=== PATIENT | female | born 1990 | race Caucasian/White ===

== ENCOUNTER 2019-07-04 08:43 | Emergency (ER) | payer MEDICAID ==
[2019-07-04] MEDS ORDERED: KETOROLAC TROMETHAMINE 60 MG/2 ML SDV IM ONE (10:13)
[2019-07-04] MEDS ORDERED: METHYLPREDNISOLONE ACETATE INJ 80 MG/1 ML VIAL IM ONE (10:13)
[2019-07-04] MEDS ORDERED: METHOCARBAMOL 750 MG TABLET PO ONE (10:14)
--- NOTE | 2019-07-04 10:14 | ER Document Report ---
ED General - General Chief Complaint: Back Pain Stated Complaint: BACK PAIN Time Seen by Provider: 07/04/19 09:57 Mode of Arrival: Ambulatory Information source: Patient TRAVEL OUTSIDE OF THE [place] IN LAST 30 DAYS: No - HPI Onset: Other - over the last 3-4 days Onset/Duration: Sudden Quality of pain: Burning, Sharp Severity: Severe Pain Level: 5 Associated symptoms: Other - pain radiates down both legs Exacerbated by: Movement, Walking Relieved by: Remaining still Recently seen / treated by doctor: Yes - patient has chronic back pains but todays pain seems worse to her Notes: 29 year old female with a history of Chronic Back Pain s/p 3 surgeries (most recently was Lumbar fusion in 2017 done in [place], [place]), Bipolar and Sc hizophrenia here for 3-4 days of low back pain. The patient denies trauma to her back, recent heavy lifting, or an inciting event. The patient says she has pain in her neck through her low back and the pain seems to radiate down both legs. The patient denies numbness, tingling, leg weakness, incontinence, urinary retention. The patient says she has no follow up appointment with the Spine Surgeon who performed her surgery but she has called to try and make an appointment. The patient says she usually uses Tylenol at home but it isnt working. - Related Data Allergies/Adverse Reactions: haloperidol [From Haldol] Allergy (Intermediate, Verified 07/04/19 08:48) haloperidol lactate [From Haldol] Allergy (Intermediate, Verified 07/04/19 08:48) latex [Latex] Allergy (Verified 07/04/19 08:48) morphine Adverse Reaction (Mild, Verified 07/04/19 08:48) Pruritis Home Medications: Seroquel. Clonidine. Lexapro. Topamax Past Medical History - General Information source: Patient - Social History Smoking Status: Current Every Day Smoker Chew tobacco use (# tins/day): No Frequency of alcohol use: None Drug Abuse: None Family History: Reviewed & Not Pertinent Patient has suicidal ideation: No Patient has homicidal ideation: No Neurological Medical History: Reports: Hx Migraine Musculoskeletal Medical History: Reports Other - Chronic Back Pain Psychiatric Medical History: Reports: Hx Anxiety - panic attacks, Hx Bipolar Disorder, Hx Depression, Hx Schizophrenia Past Surgical History: Reports: Hx Orthopedic Surgery - 04/2013 & 09/2013, Hx Tubal Ligation - Immunizations Immunizations up to date: No Hx Diphtheria, Pertussis, Tetanus Vaccination: No Review of Systems - Review of Systems Constitutional: No symptoms reported EENT: No symptoms reported Cardiovascular: No symptoms reported Respiratory: No symptoms reported Gastrointestinal: No symptoms reported Genitourinary: Frequency Female Genitourinary: No symptoms reported Musculoskeletal: Back pain - from neck to low back and radiates down both legs Skin: No symptoms reported Hematologic/Lymphatic: No symptoms reported Neurological/Psychological: No symptoms reported Physical Exam - Vital signs Vitals: Temp Pulse Resp BP Pulse Ox 97.9 F 78 20 129/62 H 98 07/04/19 08:47 07/04/19 08:47 07/04/19 08:47 07/04/19 08:47 07/04/19 08:47 - Notes Notes: GENERAL: Well-appearing, well-nourished and in no acute distress. HEAD: Atraumatic, normocephalic. EYES: Pupils equal round and reactive to light, extraocular movements intact, sclera anicteric, conjunctiva are normal. ENT: TMs normal, nares patent, oropharynx clear without exudates. Moist mucous membranes. NECK: Normal range of motion, supple without lymphadenopathy or JVD. LUNGS: Breath sounds clear to auscultation bilaterally and equal. No wheezes rales or rhonchi. HEART: Regular rate and rhythm without murmurs, rubs or gallops. ABDOMEN: Soft, nontender, normoactive bowel sounds. No guarding, no rebound. No masses appreciated. EXTREMITIES: Normal range of motion, no pitting or edema. No clubbing or cyanosis. BACK: mild tenderness to palpation in Lumbar Spine area with no step offs. Pain in both legs and Lumbar Region with straight leg raise of both legs. NEUROLOGICAL: Cranial nerves II through XII grossly intact. Normal speech, normal gait. PSYCH: Normal mood, normal affect. SKIN: Warm, Dry, normal turgor, no rashes or lesions noted. Course - Re-evaluation Re-evalutation: 07/04/19 10:41 The patient is here for acute on chronic back pain. She has had 3 surgeries on her back with the most recent being in 2017 (lumbar fusion) in [place], [place]. Patient had no new injuries to her back and her Lumbar Xray shows no acute process. Patient told to follow up with her Spine Surgeon. Patient treated with Depomedrol IM, Toradol IM, and Robaxin PO. Will DC on Naproxen and Robaxin. 07/04/19 10:49 Patient is having urinary frequency and her UA looks possibly infectious. Will treat with Cipro 250mg BID for 3 days. - Vital Signs Vital signs: Temp Pulse Resp BP Pulse Ox 97.9 F 78 20 129/62 H 98 07/04/19 08:47 07/04/19 08:47 07/04/19 08:47 07/04/19 08:47 07/04/19 08:47 - Laboratory Laboratory results interpreted by me: 07/04/19 09:42 Urine Protein 30 H Ur Leukocyte Esterase LARGE H Discharge - Discharge Clinical Impression: Back pain Qualifiers: Back pain location: low back pain Chronicity: acute Back pain laterality: unspecified Sciatica presence: with sciatica Sciatica laterality: bilateral sciatica Qualified Code(s): M54.42 - Lumbago with sciatica, left side UTI (urinary tract infection) Qualifiers: Urinary tract infection type: acute cystitis Hematuria presence: without hematuria Qualified Code(s): N30.00 - Acute cystitis without hematuria Condition: Stable Disposition: HOME, SELF-CARE Additional Instructions: Use Naproxen for back pain along with over the counter Tylenol. Use Robaxin for muscle spasms. Take Ciprofloxacin as prescribed for a UTI. Follow up with your Spine Surgeon as soon as possible. Prescriptions: Ciprofloxacin HCl [Cipro 500 mg Tablet] 250 mg PO BID 3 Days #6 tablet Naproxen 500 mg PO BID PRN #14 tablet PRN Reason: Methocarbamol [Robaxin 750 mg Tablet] 750 mg PO Q8H PRN #15 tablet PRN Reason:
[2019-07-04 10:31] LABS: APPEARANCE,URINE SLIGHTLY-CLOUDY; BILIRUBIN,URINE NEGATIVE (NEGATIVE); COLOR,URINE YELLOW; GLUCOSE, URINE NEGATIVE (NEGATIVE); KETONES,URINE NEGATIVE (NEGATIVE); LEUKOCYTE ESTERASE,URINE LARGE (NEGATIVE); NITRITE,URINE NEGATIVE (NEGATIVE); PROTEIN,URINE 30 mg/dL (NEGATIVE); URINE SPECIFIC GRAVITY 1.025; UROBILINOGEN,URINE NEGATIVE mg/dL (<2.0)
--- NOTE | 2019-07-04 10:57 | RADIOLOGY REPORT (SQ) ---
EXAM DESCRIPTION: L SPINE 2 VIEWS COMPLETED DATE/TIME: 07/04/2019 10:47 am REASON FOR STUDY: low back pain COMPARISON: None. FINDINGS: Two views lumbar spine: Intact instrumentation at the lumbosacral junction. Normal align ment. No fracture or bone lesion detected. TECHNICAL DOCUMENTATION: JOB ID: [id number] Reading location - IP/workstation name: [email or web address]
[2019-07-04 11:29] VITALS: BP 115/56
== END 2019-07-04 11:32 | disposition home or self-care (01) ==
LOC: ER 08:43
DX: M54.42 Lumbago with sciatica, left side (principal); N30.00 Acute cystitis without hematuria; M54.9 Dorsalgia, unspecified; M79.604 Pain in right leg; M79.605 Pain in left leg; G89.29 Other chronic pain; Z98.890 Other specified postprocedural states; F17.200 Nicotine dependence, unspecified, uncomplicated
CPT/HCPCS: 99283; 96372; 81001; 72100; J1885; J3490; J1040

== ENCOUNTER 2019-08-03 10:57 | Emergency (ER) | payer MEDICAID ==
[2019-08-03] MEDS ORDERED: TETRACAINE HCL 0.5% OPH SOLN 4 ML OD ONE (12:08)
--- NOTE | 2019-08-03 12:09 | ER Document Report ---
ED Medical Screen (RME) - General Chief Complaint: Eye Pain Stated Complaint: EYE IRRITATION Time Seen by Provider: 08/03/19 12:03 Mode of Arrival: Ambulatory Information source: Patient Notes: 29-year-old female patient presents emergency department chief complaint of right eye pain. Patient reports over the last 3 days she has had pain and swelling. Patient reports pain not only on the upper eyelid where there appears to be a stye but also pain in her eyeball itself. Patient also reports intermittent blurred vision. Patient denies use of any contact lenses. Denies any trauma to the eye. Patient reports she cannot see out of that eye properly. Orders placed, patient will be seen in the back. I have greeted and performed a rapid initial assessment of this patient. A comprehensive ED assessment and evaluation of the patient, analysis of test results and completion of the medical decision making process will be conducted by additional ED providers. I have specifically instructed the patient or family members with the patient to immediately return to any nursing staff should anything change in the patient's condition or with their chief complaint. TRAVEL OUTSIDE OF THE [place] IN LAST 30 DAYS: No - Related Data Allergies/Adverse Reactions: haloperidol [From Haldol] Allergy (Intermediate, Verified 08/03/19 11:45) haloperidol lactate [From Haldol] Allergy (Intermediate, Verified 08/03/19 11:45) latex [Latex] Allergy (Verified 08/03/19 11:45) Home Medications: melatonin Past Medical History - Social History Frequency of alcohol use: None Drug Abuse: None Neurological Medical History: Reports: Hx Migraine Psychiatric Medical History: Reports: Hx Anxiety - panic attacks, Hx Bipolar Disorder, Hx Depression, Hx Schizophrenia Past Surgical History: Reports: Hx Orthopedic Surgery - 04/2013 & 09/2013, Hx Tubal Ligation - Immunizations Immunizations up to date: No Hx Diphtheria, Pertussis, Tetanus Vaccination: No Physical Exam - Vital signs Vitals: Temp Pulse Resp BP Pulse Ox 98.5 F 92 16 137/79 H 100 08/03/19 11:16 08/03/19 11:16 08/03/19 11:16 08/03/19 11:16 08/03/19 11:16 Course - Vital Signs Vital signs: Temp Pulse Resp BP Pulse Ox 98.5 F 92 16 137/79 H 100 08/03/19 11:16 08/03/19 11:16 08/03/19 11:16 08/03/19 11:16 08/03/19 11:16
--- NOTE | 2019-08-03 13:25 | ER Document Report ---
ED General - General Chief Complaint: Eye Pain Stated Complaint: EYE IRRITATION Time Seen by Provider: 08/03/19 12:03 Primary Care Provider: [facility] [Provider Group] - Follow up in 3-5 days ANTONIA MENSAH DO [ACTIVE STAFF] - Follow up in 3-5 days SYED WARD MD [COMMUNITY BASED STAFF] - Follow up in 3-5 days Mode of Arrival: Ambulatory Notes: 29-year-old female presents with right upper eyelid pain and swelling for the past 3 days. Patient denies any fever. Patient is supposed to wear glasses and denies wearing any contacts. Patient does not currently have her glasses with her. Patient denies any redness to her eye, injury to her eye, or pain to her actual eye. Patient states her eye ball does feel itchy. Patient also denies any fever. TRAVEL OUTSIDE OF THE [place] IN LAST 30 DAYS: No - Related Data Allergies/Adverse Reactions: haloperidol [From Haldol] Allergy (Intermediate, Verified 08/03/19 11:45) haloperidol lactate [From Haldol] Allergy (Intermediate, Verified 08/03/19 11:45) latex [Latex] Allergy (Verified 08/03/19 11:45) Home Medications: melatonin Past Medical History - General Information source: Patient - Social History Smoking Status: Current Every Day Smoker Frequency of alcohol use: None Drug Abuse: None Family History: Reviewed & Not Pertinent Patient has suicidal ideation: No Patient has homicidal ideation: No Neurological Medical History: Reports: Hx Migraine Psychiatric Medical History: Reports: Hx Anxiety - panic attacks, Hx Bipolar Disorder, Hx Depression, Hx Schizophrenia Past Surgical History: Reports: Hx Orthopedic Surgery - 04/2013 & 09/2013, Hx Tubal Ligation - Immunizations Immunizations up to date: No Hx Diphtheria, Pertussis, Tetanus Vaccination: No Review of Systems - Review of Systems Notes: Constitutional: Negative for fever. HENT: Negative for sore throat. Eyes: Positive for right upper eyelid swelling/pain. Cardiovascular: Negative for chest pain. Respiratory: Negative for shortness of breath. Gastrointestinal: Negative for abdominal pain, vomiting or diarrhea. Genitourinary: Negative for dysuria. Musculoskeletal: Negative for back pain. Skin: Negative for rash. Neurological: Negative for headaches, weakness or numbness. 10 point ROS negative except as marked above and in HPI. Physical Exam - Vital signs Vitals: Temp Pulse Resp BP Pulse Ox 98.5 F 92 16 137/79 H 100 08/03/19 11:16 08/03/19 11:16 08/03/19 11:16 08/03/19 11:16 08/03/19 11:16 - Notes Notes: GENERAL: Well-appearing, well-nourished and in no acute distress. HEAD: Atraumatic, normocephalic. EYES: Right upper eyelid is erythematous and swollen consistent with stye, pupils equal round and reactive to light, extraocular movements intact, sclera anicteric, conjunctiva are normal. NECK: Normal range of motion, supple without lymphadenopathy or JVD. EXTREMITIES: Normal range of motion, no pitting or edema. No clubbing or cyanosis. NEUROLOGICAL: Cranial nerves II through XII grossly intact. Normal speech, normal gait. PSYCH: Normal mood, normal affect. SKIN: Warm, Dry, normal turgor, no rashes or lesions noted. - HEENT Visual acuity- Right eye: 20/70 Visual acuity- Left eye: 20/30 Visual acuity- Both eyes: 20/40 Corrective lenses worn: No - usually wears glasses. Course - Re-evaluation Re-evalutation: 08/03/19 nontoxic, well-appearing female presents with right upper eyelid pa in/swelling. Patient states her eye itself feels itchy and she has been rubbing it. Patient denies doing anything else. Patient denies any previous injury. Patient is supposed to wear glasses and her visual acuity is right eye 20/70, left eye 20/30, and both eyes 20/40. Patient denies wearing any contacts. Examination of eyelid is consistent with external hordeolum/stye. PERRLA EOM intact. Conjunctive is normal without any irritation/redness. No discharge noted. Patient instructed to use warm compresses to the eyelid and prescribed ibuprofen for pain. Patient instructed to follow-up with buck swamper in 3 to 5 days. Patient given strict return precautions. Patient voices understanding and agrees with plan of care. - Vital Signs Vital signs: Temp Pulse Resp BP Pulse Ox 98.5 F 92 16 137/79 H 100 08/03/19 11:16 08/03/19 11:16 08/03/19 11:16 08/03/19 11:16 08/03/19 11:16 Discharge - Discharge Clinical Impression: Hordeolum externum (stye) Qualifiers: Laterality: right Eyelid: upper Qualified Code(s): H00.011 - Hordeolum externum right upper eyelid Condition: Stable Disposition: HOME, SELF-CARE Additional Instructions: Please use warm compresses to your right eyelid. Most likely you have a stye. These will take a little while to get better. Please take ibuprofen or Tylenol for pain. Please follow-up with eye doctor listed in 3 to 5 days. Follow up with one of the other clinics listed in 3-5 days to establish a primary care doctor. Return immediately for any worsening symptoms, including worsening vision, redness to the white part of your eye, increased discharge, increased swelling, fever, or any other symptoms that are concerning to you. Prescriptions: Ibuprofen [Motrin 400 mg Tablet] 400 mg PO MEALS #30 tablet Referrals: ANTONIA MENSAH DO [ACTIVE STAFF] - Follow up in 3-5 days SYED WARD MD [COMMUNITY BASED STAFF] - Follow up in 3-5 days [facility] [Provider Group] - Follow up in 3-5 days
[2019-08-03 13:47] VITALS: BP 124/63
== END 2019-08-03 13:48 | disposition home or self-care (01) ==
LOC: ER 10:57
DX: H00.011 Hordeolum externum right upper eyelid (principal); H57.11 Ocular pain, right eye; F17.200 Nicotine dependence, unspecified, uncomplicated; Z98.51 Tubal ligation status; Z91.040 Latex allergy status
CPT/HCPCS: J3490